=== PATIENT | male | born 1960 | race Caucasian/White ===

== ENCOUNTER → 2019-09-30 | Outpatient (REF) | LOC: M LAB LCGH 10:25 | PROVIDERS: ATTEND Family Medicine | DX: Z00.00 Encounter for general adult medical examination without abnormal findings (principal) ==

== ENCOUNTER → 2019-10-14 | Outpatient (REF) | payer MEDICARE, OTHER, BC ==
[2019-10-14 17:54] LABS: APPEARANCE, URINE CLEAR (CLEAR); BACTERIA, URINE AUTO NEGATIVE (NEGATIVE); BILIRUBIN, URINE AUTO NEGATIVE (NEGATIVE); BLOOD, URINE BLOOD NEGATIVE (NEGATIVE); COLOR, URINE YELLOW (YELLOW); GLUCOSE, URINE (UA) AUTO NEGATIVE (NEGATIVE); KETONE, URINE AUTO NEGATIVE (NEGATIVE); LEUKOCYTE ESTERASE, URINE AUTO NEGATIVE (NEGATIVE); MUCUS, URINE SMALL (NEGATIVE); NITRITE, URINE AUTO NEGATIVE (NEGATIVE); PROTEIN, URINE AUTO NEGATIVE (NEGATIVE); RBC, URINE AUTO 1 /HPF (0-3); SPECIFIC GRAVITY URINE AUTO 1.017 (1.002-1.035); SQUAMOUS EPITHELIAL CELL UR AU 0 /HPF (0-6); UROBILINOGEN, URINE AUTO 0.2 mg/dL (0.0-2.0); WBC, URINE AUTO 3 /HPF (0-3)
== END ==
LOC: M SMT 17:02
PROVIDERS: ATTEND Nurse Practitioner Women's Health
DX: N20.0 Calculus of kidney (principal)
CPT/HCPCS: 81001; 87086; G0463

== ENCOUNTER → 2019-10-19 | Outpatient (CLI) | payer MEDICARE, BC ==
--- NOTE | 2019-10-19 09:55 | REP ---
Clinical: Kidney stone. Technique: Axial noncontrast images from the lung bases to the pubic symphysis with coronal and sagittal re-formations. Comparison: None. Findings: Moderate/significant right-sided hydronephrosis and proximal hydroureter with perinephric and periureteral stranding secondary to a 11 x 16 mm obstructing calculus in the proximal right ureter. Smaller nonobstructing bilateral intrarenal calculi measuring up to approximately 2 mm are also noted. Bladder is unremarkable. Liver, spleen, pancreas, gallbladder, and bilateral adrenal glands are normal. The enteric system is without obstruction or acute inflammatory process. Evidence for prior appendectomy noted in the right lower quadrant. There is a moderate/large left inguinal hernia containing nonobstructed loop of sigmoid colon. Diverticulosis noted without acute diverticulitis. No ascites. No free air. No adenopathy. Abdominal aorta without aneurysm. Musculoskeletal structures demonstrate age-related degenerative changes. Impression: 1. Moderate to significant right-sided obstructive uropathy as detailed above along with small nonobstructing bilateral nephroliths. 2. [id number] left inguinal hernia containing nonobstructed loop of sigmoid colon. Electronically Signed by Chris Pedroza MD 10/19/2019 09:47 A
== END ==
LOC: M RAD 08:42
PROVIDERS: ATTEND Nurse Practitioner Women's Health
DX: N20.0 Calculus of kidney (principal)

== ENCOUNTER 2019-11-30 06:49 | Day surgery (SDC) | payer MEDICARE, BC ==
[~2019-11-30] VITALS: Ht 182.9 cm; Wt 102.9 kg
[~2019-11-30 06:49] MED LIST: AMIT150T PO; APPL300T4 PO; ASPI81TA85 PO; LIDOCAINE 1% MDV 20ML VIAL SQ PRN; LR 1,000 ML IV ONE; MULTCAP PO; OXYC1TAB23 PO; PRAM1TAB7 PO; PSEU30TA88 PO; REFLUX MED PO; SERT-138 PO; ceFAZolin SOD 2 GM in IV 1 EA IV ONE
[2019-11-30] MEDS ORDERED: CONRAY-60 60% 50ML VIAL (Q9961) As Ordered ONE (09:06)
[2019-11-30] MEDS ORDERED: PROPOFOL 200 MG/20 ML VIAL As Ordered ONE (10:57)
[2019-11-30] MEDS ORDERED: MIDAZOLAM INJ 2 MG/2 ML VIAL (J2250) As Ordered ONE (10:57)
[2019-11-30] MEDS ORDERED: fentaNYL 100 MCG/2 ML INJECTION (J3010) As Ordered ONE (10:57)
[2019-11-30] MEDS ORDERED: LIDOCAINE 2% INJ 100 MG/5 ML SDV (FOR ANES.) As Ordered ONE (10:57)
[2019-11-30] MEDS ORDERED: KETOROLAC 60 MG/2 ML VIAL (J1885) As Ordered ONE (10:57)
[2019-11-30] MEDS ORDERED: dexameTHASONE 4 MG/ML 1ML VIAL (J1100) As Ordered ONE (10:58)
[2019-11-30] MEDS ORDERED: ROCURONIUM BROMIDE 50 MG/5 ML VIAL As Ordered ONE (10:58)
[2019-11-30] MEDS ORDERED: ONDANSETRON 4MG/2ML VIAL (J2405) As Ordered ONE (10:58)
--- NOTE | 2019-11-30 13:45 | REP ---
Retrograde pyelogram: Two views. History: Cystoscopy. Right ureteroscopy, stent placement. 13 seconds of fluoroscopy time is reported. Findings: A sequence of two last image hold fluoroscopically obtained spot radiographs of the abdomen document right ureteral cannulation, contrast injection, hydronephrosis, and double pigtail stent placement. Electronically Signed by Jared Ceja MD 11/30/2019 01:36 P
[2019-11-30] MEDS ORDERED: LR 1,000 ML IV SCH (14:00)
[2019-11-30] MEDS ORDERED: fentaNYL 100 MCG/2 ML INJECTION (J3010) IV PRN (14:00)
[2019-11-30] MEDS ORDERED: ONDANSETRON 4MG/2ML VIAL (J2405) IV PRN (14:00)
[2019-11-30] MEDS: PERCOCET 5MG/325MG TAB PO PRN ×2 (14:06→15:30)
[2019-11-30 16:00] VITALS: BP 142/85
--- NOTE | 2019-11-30 20:21 | RO ---
DATE OF PROCEDURE: 11/30/2019 PREPROCEDURE DIAGNOSIS: Right ureteral stone. POSTPROCEDURE DIAGNOSIS: Right ureteral stone. PROCEDURE: Cystoscopy, right ureteroscopy with laser lithotripsy and basket extraction of stones, right retrograde pyelogram with intraoperative interpretation of images, right ureteral stent placement. SURGEON: Dr. Hadley Akins EGG SMELLER: None. ANESTHESIA: General. OPERATIVE INDICATIONS: This is a 59-year-old male, who on recent CAT scan was found to have an approximately 1.3 cm right ureteral stone. He was brought to the operating room today for treatment. DESCRIPTION OF PROCEDURE: The patient was brought to the operating room and general anesthesia was induced. Prophylactic antibiotics were infused. He was then placed in the dorsal lithotomy position and prepped and draped in the usual sterile fashion. A rigid cystoscope was then inserted into the urethral meatus and advanced into the bladder. A guidewire was then advanced to the right collecting system. I then advanced a ureteral access sheath in the right collecting system. I went up the access sheath with a flexible ureteroscope, and of note, within the proximal ureter, the 1.3 cm stone was seen and it was impacted. At this point, I utilized a 200 micron laser fiber to fragment the stone into smaller pieces. All of the fragments were then removed using a basket. I then examined the kidney and any fragments inside the kidney were removed as well. Once satisfied all the stone fragments had been removed, a retrograde pyelogram was performed, and it was notable for severe right hydronephrosis, no extravasation. I then withdrew the ureteroscope along with the access sheath and any additional stones in the ureter that were seen were removed with a basket. Once satisfied all the fragments were removed out of the ureter, the ureteroscope was completely removed. I then utilized the wire to advance a 6-Ivorian x 22-32 cm JJ ureteral stent into the right collecting system. The wire was removed, and there were adequate curls of the stent in the right renal pelvis and in the bladder. The bladder was then emptied of all fluids, and this marked the conclusion of the procedure. The patient was taken out of the dorsal lithotomy position, awakened from anesthesia and transported to the recovery room in stable condition. Estimated blood loss: 5 mL. Complications: None. Specimens: Kidney stone fragments. PLAN: The patient will followup in the clinic in a few weeks for stent removal. SHAN
== END 2019-11-30 16:15 | disposition home or self-care (01) ==
LOC: M SDC 06:49
PROVIDERS: ATTEND Urology
DX: N20.0 Calculus of kidney (principal); N20.1 Calculus of ureter; M54.5 Low back pain; K21.9 Gastro-esophageal reflux disease without esophagitis; Z79.82 Long term (current) use of aspirin; Z79.899 Other long term (current) drug therapy
CPT/HCPCS: 52356; 74420; 82360; 88300; C1769; C1894; C2617; J0690; J1100; J1885; J2250; J2405; J3010; Q9961

== ENCOUNTER → 2022-11-23 | Outpatient (CLI) | payer MEDICARE, BC ==
[~2022-11-23] MED LIST changes: -ASPI81TA85 PO; +ASPI81TA86 PO; -LIDOCAINE 1% MDV 20ML VIAL SQ PRN; -LR 1,000 ML IV ONE; -ceFAZolin SOD 2 GM in IV 1 EA IV ONE
== END ==
LOC: M PLALAB 09:07
PROVIDERS: ATTEND Physician Assistant
DX: R97.20 Elevated prostate specific antigen [PSA] (principal)